=== PATIENT | female | born 1955 | race Caucasian/White ===

== ENCOUNTER → 2021-11-13 | Outpatient (CLI) | payer BC, SELFPAY ==
[2021-11-13 11:30] LABS: Cholesterol 264 mg/dL (200); High Density Lipoprotein 51 mg/dL; Triglycerides 236 mg/dL; Very Low Density Lipoprotein 47 mg/dL (5-40)
== END | disposition home or self-care (01) ==
LOC: LAB 10:29
PROVIDERS: PCP Family Medicine; Referring Provider Internal Medicine Cardiovascular Disease; Visit Provider Internal Medicine Cardiovascular Disease
DX: E78.00 Pure hypercholesterolemia, unspecified (principal)
CPT/HCPCS: 36415; 80061

== ENCOUNTER → 2021-11-19 | Outpatient (CLI) | payer BC, SELFPAY ==
[2021-11-19 12:00] LABS: AST(SGOT) 17 U/L (15-37); Alanine Aminotransfer ALT/SGPT 33 U/L (13-56)
== END | disposition home or self-care (01) ==
LOC: LAB 09:55
PROVIDERS: PCP Family Medicine; Visit Provider Internal Medicine Cardiovascular Disease
DX: E78.5 Hyperlipidemia, unspecified (principal)
CPT/HCPCS: 36415; 84450; 84460

== ENCOUNTER → 2021-11-23 | Outpatient (CLI) | payer BC, SELFPAY ==
--- NOTE | 2021-11-23 06:33 | ECHOD_ITS ---
Reason For Study: Abnormal EKG Procedure This was a 2D Doppler, Color Flow transthoracic echocardiogram. Exam performed in department. Left Ventricle The left ventricle is normal in size, thickness, sytstolic function, and diastolic function. The left ventricular ejection fraction is 65 %. Right Ventricle Normal right ventricle. Atria The left and right atria are normal. Mitral Valve Trivial mitral valve insufficiency. Tricuspid Valve Normal tricuspid valve. Aortic Valve Normal aortic valve. Pulmonic Valve The pulmonic valve is not well visualized. Great Vessels Normal sized aortic root. Pericardium/Pleural No pericardial effusion. MMode/2D Measurements & Calculations LVIDd: 3.8 cm IVSd: 1.0 cm Ao root diam: 3.3 cm LVIDs: 2.4 cm LVPWd: 0.89 cm LA dimension: 3.5 cm RVDd: 3.2 cm FS: 37.1 % LAV(MOD-bp): 24.1 ml LA A4 area: 10.6 cm2 RA A4 area: 12.9 cm2 LAV(MOD-bp) Indexed: 12.7 ml/m2 LAV(MOD-sp2): 28.4 ml LAV(MOD-sp4): 19.5 ml Time Measurements MV dec time: 0.25 sec Doppler Measurements & Calculations MV E max michele: 86.0 cm/sec Lat Peak E' Michele: 7.6 cm/sec Med Peak E' Michele: 8.2 cm/sec MV A max michele: 102.3 cm/sec E/E' lat: 11.3 E/E' med: 10.4 MV E/A: 0.84 MV V2 max: 112.2 cm/sec MV P1/2t max michele: 99.0 cm/sec Ao V2 max: 112.6 cm/sec MV max P.0 mmHg MV P1/2t: 86.8 msec Ao max P.1 mmHg MV V2 mean: 66.2 cm/sec MV dec slope: 334.0 cm/sec2 MV mean P.0 mmHg MVA(P1/2t): 2.5 cm2 MV V2 VTI: 30.6 cm LV V1 max: 99.0 cm/sec PA V2 max: 82.6 cm/sec TR max michele: 237.9 cm/sec LV V1 max P.9 mmHg PA V2 mean: 62.1 cm/sec TR max P.6 mmHg ECHO/Echo Complete Interpretation Summary The left ventricular ejection fraction is 65 %. Ordering Physician: Matti Pedersen Referring Physician: Tiarra Robert Performed By: Ken Mitchell RCS
--- NOTE | 2021-11-23 12:15 | STRESSREP_ITS ---
Stress Test Report Date: 11/23/2021 Procedure: Pharmacologic stress nuclear imaging study Indications: Abnormal EKG Consent: Per the patient Procedure: The patient underwent pharmacologic (Regadenoson 0.4mg ) evaluation with a peak heart rate of 108 beats per minute (71%predicted maximal heart rate) and a peak blood pressure of 140/70 mmHg. The baseline ECG demonstrated normal sinus rhythm. The peak pharmacologic ECG demonstrated normal sinus rhythm. Nonspecific ST changes were noted post Lexiscan. No cardiac dysrhythmias were noted during Lexiscan administration or in recovery. No complaints of chest discomfort were noted during pharmacological infusion or recovery. The patient was injected with 11.9 millicuries of technetium 99m Cardiolite and subsequently rest SPECT Cardiolite nuclear imaging was obtained in the horizontal long, vertical long, and short axis views. The patient underwent pharmacologic (Regadenoson) evaluation. The patient was injected with 36 millicuries of technetium 99m Cardiolite and subsequently stress SPECT Cardiolite nuclear imaging was obtained in the horizontal long, vertical long, and short axis views. A gated Cardiolite study at peak stress was obtained. The examination was stopped secondary to completion of protocol. Rest and stress SPECT Cardiolite nuclear imaging status post realignment, normalization, and attenuation correction demonstrate homogenous tracer distribution. No reversible defects are noted.. There is end systolic thickening and brightening. The reported LVEF is 90%. Impression: 1. Pharmacologic (Regadenoson) evaluation 2. Peak pharmacologic ECG with no significant changes. 3. No rhythm abnormalities were noted during pharmacological infusion or in recovery. 5. No fixed or reversible defects noted. 6. The gated Cardiolite study reports an LVEF of 90%. This note was generated with [employer] software. It may contain incorrect words, spelling, and punctuation that were not noted in checking the note before signing.
== END | disposition home or self-care (01) ==
PROVIDERS: PCP Family Medicine; Referring Provider Internal Medicine Cardiovascular Disease; Visit Provider Internal Medicine Cardiovascular Disease
DX: R94.31 Abnormal electrocardiogram [ECG] [EKG] (principal); E78.00 Pure hypercholesterolemia, unspecified
CPT/HCPCS: 78452; 93017; 93306; A9500; A4216; J2785

== ENCOUNTER → 2022-01-14 | Outpatient (CLI) | payer MEDICARE, SELFPAY ==
[2022-01-14 13:19] LABS: AST(SGOT) 31 U/L (15-37); Alanine Aminotransfer ALT/SGPT 46 U/L (13-56); Cholesterol 186 mg/dL (200)
[2022-01-14 13:20] LABS: High Density Lipoprotein 61 mg/dL; Triglycerides 141 mg/dL; Very Low Density Lipoprotein 28 mg/dL (5-40)
== END | disposition home or self-care (01) ==
LOC: LAB 10:07
PROVIDERS: PCP Family Medicine; Referring Provider Internal Medicine Cardiovascular Disease; Visit Provider Internal Medicine Cardiovascular Disease
DX: E78.5 Hyperlipidemia, unspecified (principal)
CPT/HCPCS: 36415; 80061; 84450; 84460